=== PATIENT | male | born 1940 | race Caucasian/White ===

== ENCOUNTER → 2021-01-15 | Outpatient (CLI) | payer MEDICARE ==
[~2021-01-15] MED LIST: AMLO-150 PO; CLON0.1T22 PO; INSU100I11 SQ-INSULIN; LEVO75TA PO; PIPE3.375 IV; POTA20TA6 PO
== END | disposition home or self-care (01) ==
LOC: RAD 11:14 → MERGE 11:15
PROVIDERS: ATTEND Internal Medicine Infectious Disease
DX: H70.92 Unspecified mastoiditis, left ear (principal)
CPT/HCPCS: 70480